=== PATIENT | female | born 1960 | race Two or more races ===

== ENCOUNTER 2022-12-28 16:49 | Emergency (ER) | payer OTHER, MEDICAID ==
[~2022-12-28] VITALS: Ht 167.6 cm; Wt 66.0 kg
[2022-12-28 20:00] VITALS: BP 135/81
== END 2022-12-28 20:00 | disposition home or self-care (01) ==
LOC: ER 16:49
DX: S86.912A Strain of unspecified muscle(s) and tendon(s) at lower leg level, left leg, initial encounter (principal); I10 Essential (primary) hypertension; X58.XXXA Exposure to other specified factors, initial encounter; Y93.01 Activity, walking, marching and hiking; Y92.89 Other specified places as the place of occurrence of the external cause; Y99.8 Other external cause status
CPT/HCPCS: 29505; 73562

== ENCOUNTER 2024-04-06 12:26 | Emergency (ER) | payer OTHER, MEDICAID ==
[~2024-04-06] VITALS: Ht 167.6 cm; Wt 67.2 kg
[2024-04-06 14:55] VITALS: BP 169/84; PULSE 62; RESP 18; TEMP 98; O2SAT 99
[2024-04-06] MEDS: FLUORESCEIN SOD OPTH TEST STRIP LEFTEYE ONE (15:55)
[2024-04-06] MEDS: TETRACAINE HCL 0.5% OPTH(EYE) SOLN 4ML LEFTEYE ONE (15:56)
== END 2024-04-06 16:23 | disposition home or self-care (01) ==
LOC: ER 12:26
DX: B02.33 Zoster keratitis (principal); I10 Essential (primary) hypertension

== ENCOUNTER 2024-08-27 11:47 | Emergency (ER) | payer OTHER, MEDICAID ==
[~2024-08-27] VITALS: Ht 167.6 cm; Wt 64.2 kg
--- NOTE | 2024-08-27 14:31 | ED.PDOC ---
History of Present Illness(SKN HPI Comments A 63 YEAR OLD FEMALE PRESENTS TO THE ED WITH COMPLAINT OF FACIAL AND NECK REDNESS. PATIENT STATES SHE HAD AN ALLERGIC REACTION 8 DAYS AGO AND THEN LATER WENT HIKING A FEW DAYS AGO AND GOT SUNBURNED ON HER FACE AND NECK. PATIENT REPORTS THIS SUNBURN HAS BEEN PAINFUL AND RED AND IS CONCERNED SHE MAY HAVE HAD A SECONDARY INFECTION. PATIENT DENIES FEVER, CHILLS, SHORTNESS OF BREATH, CHEST PAIN, ABDOMINAL PAIN, NAUSEA, VOMITING, HEADACHE, OR OTHER COMPLAINTS. NO OTHER SYMPTOMS OR MODIFYING FACTORS AT THIS TIME. PATIENT IS ALERT, ORIENTED X 4, AND HAS STEADY GAIT. Chief Complaint: Face pain Time Seen by MD: 13:38 Primary Care Provider: ANTOINE History of Present Illness: Nurses Notes, Medications, Allergies Allergies: Coded Allergies: NO KNOWN ALLERGIES (Unverified , 12/28/22) Information Source: Patient Mode of Arrival: Ambulatory Severity: Moderate Timing: Days Duration: Since onset, Days Prehospital treatment: None Location: Face Mechanism: Spontaneous Onset Developed: Rash Occurence: Outdoors Object: None Condition of Object: None Retained Foreign Body: No Wound Type: Papule Immunization Status of Animal: NA Tetanus: Unknown History of: None Associated Signs and Symptoms: Redness, Pain Past Medical History PAST MEDICAL HISTORY: HTN Surgical History: Denies all surgeries ADVISOR TO COMMAND IN COMBAT History: No Pertinent ADVISOR TO COMMAND IN COMBAT History Family History Family History: Reviewed,noncontributory to illness Social History Smoker: Non-Smoker Alcohol: Denies ETOH Use Drugs: Denies Drug Use Lives In: Home Constitutional: denies: chills, diaphoresis, fatigue, fever, malaise, sweats, weakness, others EENTM: denies: blurred vision, double vision, ear bleeding, ear discharge, ear drainage, ear pain, ear ringing, eye pain, eye redness, hearing loss, mouth pain, mouth swelling, nasal discharge, nose bleeding, nose congestion, nose pain, photophobia, tearing, throat pain, throat swelling, voice changes, others Respiratory: denies: cough, hemoptysis, orthopnea, SOB at rest, shortness of breath, SOB with excertion, stridor, wheezing, others Cardiovascular: denies: chest pain, dizzy spells, diaphoresis, Dyspnea on exertion, edema, irregular heart beat, left arm pain, lightheadedness, palpitat ions, PND, syncope, others Gastrointestinal: denies: abdomen distended, abdominal pain, blood streaked bow els, constipated, diarrhea, dysphagia, difficulty swallowing, hematemesis, melena, nausea, poor appetite, poor fluid intake, rectal bleeding, rectal pain, vomiting, others Genitourinary: denies: abnormal vagina bleeding, burning, dyspareunia, dysuria, flank pain, frequency, hematuria, incontinence, pain, , vagina discharge, urgency, others Neurological: denies: dizziness, fainting, headache, left sided numbness, left sided weakness, numbness, paresthesia, pre-existing deficit, right sided numbness, right sided weakness, seizure, speech problems, tingling, tremors, weakness, others Musculoskeletal: denies: back pain, gout, joint pain, joint swelling, muscle pain, muscle stiffness, neck pain, others Integumetry: reports: lesions, rash, others (SUN BURN OF FACE, NECK, AND UPPER CHEST); denies: bruises, change in color, change in hair/nails, dryness, lacera tion, lumps, wounds Allergic/Immunocompromised: reports: Itching; denies: Difficulty Healing, Frequent Infections, Hives, others Hematologic/Lymphatic: denies: anemia, blood clots, easy bleeding, easy bruising, swollen glands, others Endocrine: denies: excessive hunger, excessive sweating, excessive thirst, excessive urination, flushing, intolerance to cold, intolerance to heat, unexplained weight gain, unexplained weight loss, others Psychiatric: denies: anxiety, bipolar disorder, depression, hopeless, panic disorder, schizophrenia, sleepless, suicidal, others All Other Systems: Reviewed and Negative Physical Exam General Appearance: No Apparent Distress, Normal HEENT: Normal ENT Inspection, PERRL/EOMI, Pharynx Normal, TMs Normal Neck: Full Range of Motion, Non-Tender, Normal, Normal Inspection Respiratory: Chest Non-Tender, Lungs Clear, No Accessory Muscle Use, No Respiratory Distress, Normal Breath Sounds Cardiovascular: No Edema, No JVD, No Murmur, No Gallop, Normal Peripheral Pulses, Regular Rate/Rhythm Breast Exam: Deferred Gastrointestinal: No Organomegaly, Non Tender, No Pulsatile Mass, Normal Bowel Sounds, Soft Genitalia: Deferred Pelvic: Deferred Rectal: Deferred Extremities: No calf tenderness, Normal capillary refill, Normal inspection, Normal range of motion, Non-tender, No pedal edema Musculoskeletal : Apperance: Normal Neurologic: Alert, database manager II-XII nml as Tested, No Motor Deficits, Normal Affect, Normal Mood, No Sensory Deficits Cerebellar Function: Normal Reflexes: Normal Skin: Dry, Rash (ERYTHEMA PATCH SKIN RASH ON FACE, UPPER CHEST WALL AND POSTERIOR NECK. MILD BLLISTERS ON POSTERIOR NECK, NO SWELLING AND OPEN WOUND. ), Warm Peripheral Pulses: 2+ carotid (R), 2+ carotid (L) Lymphatic: No Adenopathy Was a procedure done? Was a procedure done?: No Differential Diagnosis (INTG) Differential Diagnosis: N/A Differential Diagnosis: Atopic dermatitis, Cellulitis, Contact Dermatitis, Impetigo, Intertrigo, Other (SUNBURN) Differential Diagnosis: N/A Abscess: N/A Differential Diagnosis: N/A X-Ray, Labs, Meds, VS Vital Signs Date Time Temp Pulse Resp B/P (MAP) Pulse Ox O2 Delivery O2 Flow Rate FiO2 08/27/24 14:51 68 16 96 Room Air 08/27/24 14:51 98.8 68 16 144/84 (104) 96 98.8 08/27/24 12:55 98.8 68 16 144/84 (104) 96 Current Medications Medications (Trade) Dose Ordered Sig/Obinna Route Start Time Stop Time Status Last Admin Ceftriaxone Sodium (Rocephin) 1,000 mg ONCE ONCE IM 08/27/24 14:30 08/27/24 14:31 DC 08/27/24 14:38 Methylprednisolone Sodium Succinate (Solu Medrol) 125 mg ONCE ONCE IM 08/27/24 14:30 08/27/24 14:31 DC 08/27/24 14:39 X-Ray, Labs, Meds, VS Comment EXTERNAL NOTES: NONE LABS ORDERED: NONE REVIEWED AND INTERPRETED RESULTS: NONE IMAGING ORDERED: NONE INDEPENDENT HISTORIANS: NONE TREATMENTS ORDERED: ROCEPHIN 1 G IM, SOLU-MEDROL 125 MG IM PATIENT'S CASE AND RESULTS HAVE BEEN DISCUSSED WITH THE ED ATTENDING PHYSICIAN AND THEY AGREE WITH MY PLAN OF CARE. I HAVE INSTRUCTED THEM TO FOLLOW UP WITH THEIR PCP IN 1-2 DAYS. THE PATIENT FULLY UNDERSTANDS AND IS AWARE THEY NEED TO FOLLOW UP WITH THEIR PCP FOR FURTHER EVALUATION IF THEIR SYMPTOMS PERSIST. Time of 1ST Reevaluation: 15:00 Reevaluation 1ST: Improved Patient Education/Counseling: Diagnosis, Treatment, Need For Follow Up Family Education/Counseling: Diagnosis, Treatment, Need For Follow Up Medical Screening: No EMC Exist At This Time Departure 1 Departure Time of Disposition: 15:00 Impression: Primary Impression: Sunburn of first degree Additional Impressions: Suspected soft tissue infection Allergic reaction Qualified Codes: T78.40XA - Allergy, unspecified, initial encounter Disposition: HOME / SELF CARE / HOMELESS Condition: Stable Additional Instructions: FOLLOW-UP WITH PCP IN 1 TO 2 DAYS. TAKE MEDICATIONS PRESCRIBED. RETURN TO ED FOR ANY NEW OR WORSENING SYMPTOMS. e-Prescriptions Naproxen (Naproxen) 500 Mg Tab 500 MG PO BID, #30 TAB Prov: RAE CONLEY 08/27/24 Methylprednisolone (Medrol Dosepak) 4 Mg Junior 4 MG PO UD, #21 TAB UAD Prov: RAE CONLEY 08/27/24 Cephalexin Monohydrate (Cephalexin) 500 Mg Cap 1 CAP PO TID, #30 CAP Prov: RAE CONLEY 08/27/24 Discharged With: Self Critical Care Note Critical Care Time?: No Stability Stability form required: No I personally scribed for RAE CONLEY ([email or web address]) on 08/27/24 at 14:31. E lectronically submitted by Neal Curry ([email or web address]). RAE CONLEY Aug 27, 2024 14:31
[2024-08-27] MEDS: cefTRIAXone SOD 1,000 MG VL IM ONE (14:38)
[2024-08-27] MEDS: methylPREDNISolone SOD SUCC 125 MG/2 ML VL IM ONE (14:39)
[2024-08-27 14:51] VITALS: BP 144/84; PULSE 68; RESP 16; TEMP 98.8; O2SAT 96
[2024-08-27] MEDS ORDERED: METH4PAK PO (14:58)
[2024-08-27] MEDS ORDERED: NAPR-746 PO (14:58)
[2024-08-27] MEDS ORDERED: CEPH500C PO (14:58)
== END 2024-08-27 15:01 | disposition home or self-care (01) ==
LOC: ER 11:47
DX: T78.49XA Other allergy, initial encounter (principal); L55.0 Sunburn of first degree; L08.89 Other specified local infections of the skin and subcutaneous tissue; I10 Essential (primary) hypertension; X58.XXXA Exposure to other specified factors, initial encounter
CPT/HCPCS: 96372; 99284; J0696; J2919

== ENCOUNTER 2024-09-05 22:28 | Emergency (ER) | payer OTHER, MEDICAID ==
[~2024-09-05] VITALS: Ht 167.6 cm; Wt 66.0 kg
[~2024-09-05 22:28] MED LIST: CEPH500C PO; METH4PAK PO; NAPR-746 PO
[2024-09-06] MEDS ORDERED: LORA10CA PO (00:52)
[2024-09-06] MEDS ORDERED: TRIA0.02 TOP (00:52)
[2024-09-06] MEDS ORDERED: PRED20TA2 PO (00:52)
--- NOTE | 2024-09-06 00:53 | ED.PDOC ---
History of Present Illness(SKN HPI Comments 63-year-old female presents to ER with complaints of rash x 2.5 weeks. Patient with PMH significant for eczema reports that she started developing a red itchy burning rash to neck and face 2.5 weeks ago that she states started after she slept in a camper with the heat on. She rates her current pain a 9/10 localized to rash on neck and face. Reports that she was seen in ER here for similar complaint 10 days ago and prescribed Keflex, Medrol Dosepak and naproxen that she was taken with little relief. Patient also states that she has followed up with her primary care with regards to her symptoms and is awaiting a referral to get approved to see a radio station manager. Denies fever, body aches, chills, skin drainage, headache or any further symptoms/complaints Chief Complaint: Jim Time Seen by MD: 22:57 Primary Care Provider: ANTOINE History of Present Illness: Nurses Notes, Medications, Allergies Allergies: Coded Allergies: NO KNOWN ALLERGIES (Unverified , 12/28/22) Home Meds Active Scripts Triamcinolone Acetonide (Triamcinolone Acetonide) 0.025 % Cre, 1 APPLIC TOP BID PRN, #1 CRE 0 Refills Prov:SARITHA LIN 09/06/24 Loratadine (Claritin) 10 Mg Cap, 10 MG PO DAILY PRN, #30 CAP 0 Refills Prov:SARITHA LIN 09/06/24 Prednisone (Prednisone) 20 Mg Tab, 20 MG PO BID for 5 Days, #10 TAB 0 Refills Prov:SARITHA LIN 09/06/24 Naproxen (Naproxen) 500 Mg Tab, 500 MG PO BID, #30 TAB Prov:RAE CONLEY 08/27/24 Methylprednisolone (Medrol Dosepak) 4 Mg Junior, 4 MG PO UD, #21 TAB UAD Prov:RAE CONLEY 08/27/24 Cephalexin Monohydrate (Cephalexin) 500 Mg Cap, 1 CAP PO TID, #30 CAP Prov:RAE CONLEY 08/27/24 Information Source: Patient Mode of Arrival: Ambulatory Past Medical History PAST MEDICAL HISTORY: HTN Surgical History: Denies all surgeries NUCLEAR FUEL ENRICHMENT TECHNICIAN History: No Pertinent NUCLEAR FUEL ENRICHMENT TECHNICIAN History Family History Family History: Unknown Social History Smoker: Non-Smoker Alcohol: Denies ETOH Use Drugs: Denies Drug Use Lives In: Home Constitutional: denies: chills, diaphoresis, fatigue, fever, malaise, sweats, weakness, others EENTM: denies: blurred vision, double vision, ear bleeding, ear discharge, ear drainage, ear pain, ear ringing, eye pain, eye redness, hearing loss, mouth pain, mouth swelling, nasal discharge, nose bleeding, nose congestion, nose pain, photophobia, tearing, throat pain, throat swelling, voice changes, others Respiratory: denies: cough, hemoptysis, orthopnea, SOB at rest, shortness of breath, SOB with excertion, stridor, wheezing, others Cardiovascular: denies: chest pain, dizzy spells, diaphoresis, Dyspnea on exertion, edema, irregular heart beat, left arm pain, lightheadedness, palpitations, PND, syncope, others Gastrointestinal: denies: abdomen distended, abdominal pain, blood streaked bowels, constipated, diarrhea, dysphagia, difficulty swallowing, hematemesis, melena, nausea, poor appetite, poor fluid intake, rectal bleeding, rectal pain, vomiting, others Genitourinary: denies: abnormal vagina bleeding, burning, dyspareunia, dysuria, flank pain, frequency, hematuria, incontinence, pain, , vagina discharge, urgency, others Neurological: denies: dizziness, fainting, headache, left sided numbness, left sided weakness, numbness, paresthesia, pre-existing deficit, right sided numbness, right sided weakness, seizure, speech problems, tingling, tremors, weakness, others Musculoskeletal: denies: back pain, gout, joint pain, joint swelling, muscle pain, muscle stiffness, neck pain, others Integumetry: reports: others (As stated in HPI) Allergic/Immunocompromised: reports: others (As stated in HPI) Hematologic/Lymphatic: denies: anemia, blood clots, easy bleeding, easy bruising, swollen glands, others Endocrine: denies: excessive hunger, excessive sweating, excessive thirst, excessive urination, flushing, intolerance to cold, intolerance to heat, unexpla ined weight gain, unexplained weight loss, others Psychiatric: denies: anxiety, bipolar disorder, depression, hopeless, panic disorder, schizophrenia, sleepless, suicidal, others Physical Exam General Appearance: No Apparent Distress HEENT: Normal ENT Inspection, PERRL/EOMI, Pharynx Normal, TMs Normal Neck: Full Range of Motion, Non-Tender, Normal Respiratory: Chest Non-Tender, Lungs Clear, No Accessory Muscle Use, No Respiratory Distress, Normal Breath Sounds Cardiovascular: No Murmur, No Gallop, Regular Rate/Rhythm Breast Exam: Deferred Gastrointestinal: NOT DONE Genitalia: Deferred Pelvic: Deferred Rectal: Deferred Extremities: Normal capillary refill, Normal range of motion Neurologic: Alert, No Motor Deficits, Normal Affect, Normal Mood, No Sensory Deficits Cerebellar Function: Normal Reflexes: Normal Skin: Dry, Warm, Other (Fine red erythemic scaly patches noted to neck and face. No drainage/fluctuance/red streaking noted) Peripheral Pulses: 2+ carotid (R), 2+ carotid (L), 2+ Radial (R), 2+ Radial (L ), 2+ Brachial (R), 2+ Brachial (L) Lymphatic: No Adenopathy Was a procedure done? Was a procedure done?: No Sedation Sedation?: No Differential Diagnosis (INTG) Differential Diagnosis: Abrasion, Cellulitis Differential Diagnosis: Cellulitis X-Ray, Labs, Meds, VS Vital Signs Date Time Temp Pulse Resp B/P (MAP) Pulse Ox O2 Delivery O2 Flow Rate FiO2 09/05/24 22:50 98.6 74 20 156/72 (100) 98 Solu-Medrol 125 mg IM ordered Claritin 10 mg p.o. ordered Patient advised on strict importance of not applying the steroid cream to face Advised to drink plenty of fluids Advised to follow up with PCP and radio station manager in 1-2 days Patient verbalized understanding and agreeable with current plan of care Advised to return to ER immediately if symptoms worsen Time of 1ST Reevaluation: 00:24 Reevaluation 1ST: N/A Patient Education/Counseling: Diagnosis, Treatment, Prognosis, Need For Follow Up Family Education/Counseling: No Family Present Departure 1 Departure Time of Disposition: 00:50 Impression: Primary Impression: Contact dermatitis Qualified Codes: L24.9 - Irritant contact dermatitis, unspecified cause Disposition: HOME / SELF CARE / HOMELESS Condition: Stable e-Prescriptions Triamcinolone Acetonide (Triamcinolone Acetonide) 0.025 % Cre 1 APPLIC TOP BID PRN, #1 CRE 0 Refills Prov: SARITHA LIN 09/06/24 Loratadine (Claritin) 10 Mg Cap 10 MG PO DAILY PRN, #30 CAP 0 Refills Prov: SARITHA LIN 09/06/24 Prednisone (Prednisone) 20 Mg Tab 20 MG PO BID for 5 Days, #10 TAB 0 Refills Prov: SARITHA LIN 09/06/24 Discharged With: Self Critical Care Note Critical Care Time?: No Stability Stability form required: No Heart Score Heart Score: Heart Score Response (Comments) Value History N/A 0 EKG N/A 0 Age N/A 0 Risk Factors N/A 0 Troponin N/A 0 Total 0 SARITHA LIN Sep 06, 2024 00:52
[2024-09-06] MEDS: methylPREDNISolone SOD SUCC 125 MG/2 ML VL IM ONE (01:27)
[2024-09-06] MEDS: LORATADINE 10 MG TAB PO ONE (01:32)
[2024-09-06 02:21] VITALS: BP 134/78; PULSE 76; RESP 18; TEMP 98.6; O2SAT 98
== END 2024-09-06 02:30 | disposition home or self-care (01) ==
LOC: ER 22:28
DX: L25.9 Unspecified contact dermatitis, unspecified cause (principal); I10 Essential (primary) hypertension; Z79.52 Long term (current) use of systemic steroids; Z79.899 Other long term (current) drug therapy
CPT/HCPCS: 96372; 99283; J2919